=== PATIENT | male | born 1995 | race African-American/Black ===

== ENCOUNTER 2016-08-30 19:18 | Emergency (ER) | payer OTHER ==
[~2016-08-30] VITALS: Ht 180.3 cm; Wt 92.2 kg
[2016-08-30] MEDS ORDERED: MAGNESIUM/ALUMINUM HYDROXIDE/SIMETHICONE 30ML UDC PO STA (22:46)
[2016-08-30] MEDS ORDERED: FAMOTIDINE 20MG TABLET PO ONE (23:00)
[2016-08-31 02:05] VITALS: BP 116/74
== END 2016-08-31 07:24 | disposition home or self-care (01) ==
LOC: ER 21:02
DX: R07.2 Precordial pain (principal); K21.9 Gastro-esophageal reflux disease without esophagitis; F12.10 Cannabis abuse, uncomplicated
CPT/HCPCS: 71010; 93005; 99284